=== PATIENT | female | born 1985 | race Caucasian/White ===

== ENCOUNTER 2024-07-23 23:42 | Emergency (ER) | payer OTHER, SELFPAY | END 2024-07-24 00:55 | disposition home or self-care (01) | LOC: NAV ERS 23:42 | DX: S93.401A Sprain of unspecified ligament of right ankle, initial encounter (principal); F17.290 Nicotine dependence, other tobacco product, uncomplicated; W01.0XXA Fall on same level from slipping, tripping and stumbling without subsequent striking against object, initial encounter | CPT/HCPCS: 99283 ==